=== PATIENT | male | born 1985 | race Caucasian/White ===

== ENCOUNTER 2023-04-13 09:27 | Emergency (ER) | payer SELFPAY ==
[2023-04-13 09:35] VITALS: BP 108/88; PULSE 73; RESP 14; TEMP 37; O2SAT 95
--- NOTE | 2023-04-13 09:37 | ED_ITS ---
HPI - Skin/Abscess/Foreign Bdy General: Chief complaint: Skin/Abscess/Foreign Body Stated complaint: possible poison dimitri Time Seen by Provider: 04/13/23 09:28 Source: patient Mode of arrival: ambulatory Limitations: no limitations History of Present Illness: Patient is a 37-year-old male who presents to ED today with a rash that he feels is consistent with poison dimitri. Patient states a few days ago he was helping remodel a house and was pulling weeds as well as taking out roots in order to lay exterior rock fa?sergio when he noticed he had pulled some poison dimitri. He states since then he noticed a rash to bilateral hands/wrists/forearms and has a few lesions to his anterior chest. He states they burn and itch. Has tried Benadryl and topical hydrocortisone cream without much relief. MD complaint: rash and lesion Onset (ago): day(s) Tetanus up to date: yes Location: chest, LUE, RUE, L hand and R hand Severity: mild Quality: burning and pruritic Relieving factors: none Exacerbating factors: none Context: other (plant exposure ) Associated symptoms: Deny chills, fever(s), nausea or vomiting Treatments prior to arrival: Benadryl and corticosteroid Review of Systems Const: Denies: fever(s), chills, body aches, fatigue or malaise Card: Denies: chest pain Resp: Denies: dyspnea GI: Denies: abdominal pain, nausea or vomiting Musc: Denies: neck pain, back pain, extremity pain or joint pain Skin/Breast: Reports: rash and pruritus Neuro: Denies: numbness in extremities, weakness in extremities or sensory changes Physical Exam Const: COMMON NORMALS: no acute distress, average body habitus, patient oriented x3, no limitations, healthy appearing, alert and well nourished Extremity: COMMON NORMALS: normal to inspection GENERAL: Yes normal exam except as noted Neuro: COMMON NORMALS: patient oriented x3, moves all extremities, no focal motor deficits and no sensory deficits noted SENSORIUM/ORIENTATION: Yes alert Skin: NARRATIVE SKIN EXAM: patient has multiple excoriated erythematous lesions consisting of mainly papules some of which are clustered to bilateral hands/wrists/forearms; some linear distribution noted; no webbing lesions; no crusting noted RASHES: rashes noted Course Vital Signs: Vital signs: Vital Signs Temperature 98.6 F 04/13/23 09:35 Pulse Rate 73 04/13/23 10:02 Respiratory Rate 14 04/13/23 09:35 Blood Pressure 107/88 04/13/23 10:02 Pulse Oximetry 98 04/13/23 10:02 Oxygen Delivery Me thod Room Air 04/13/23 09:35 MDM - Skin/Abscess/Foreign Bdy Medicial Decision Making Suspicion for scabies clinically however history suggests more of a plant dermatitis. Patient would like treatment for poison dimitir with steroids as he feels confident this is what this is. He was given IM hydrocortisone here and will place on topical triamcinolone cream at home. Discussed if symptoms do not improve and continue to spread/worsen then he needs re-evaluated. Patient agrees. 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
[2023-04-13] MEDS: hydrocortisone 100 mg/2 mL SDV 50 MG IM (09:54)
[2023-04-13 10:02] VITALS: BP 107/88; PULSE 73; O2SAT 98
== END 2023-04-13 09:59 | disposition home or self-care (01) ==
PROVIDERS: Emergency Provider Physician Assistant; PCP General Practice
DX: L23.7 Allergic contact dermatitis due to plants, except food (principal)
CPT/HCPCS: 96372; 99284; J1720

== ENCOUNTER 2023-12-06 11:01 | Emergency (ER) | payer BC, MEDICAID, SELFPAY ==
[2023-12-06 11:26] VITALS: BP 114/71; PULSE 55; RESP 18; TEMP 36.8; O2SAT 95; BMI 22.3
--- NOTE | 2023-12-06 11:33 | ED_ITS ---
HPI - Extremity Injury (Upper) General: Chief Complaint: Extremity Problem,Nontraumatic Stated Complaint: Right shoulder pain Time Seen by Provider: 12/06/23 11:02 Source: patient Mode of arrival: ambulatory Limitations: no limitations History of Present Illness: Patient is a 38-year-old male who presents to ED today for evaluation of a right shoulder injury. Patient states yesterday he was working on a garage door when the spring unloaded and caused the garage door to shoot upward. Patient states he was holding onto the door and thus his arm got pulled abruptly. Patient states he noticed a small amount of pain immediately but was not overly concerned. He states he woke up this morning and cannot use the shoulder secondary to pain. Denies numbness, tingling, loss of sensation. No color or temperature changes. MD complaint: injury to: right and shoulder Onset (ago): day(s) (yesterday) Other Extremity Injury: Right: shoulder Other injuries: none Place: home Severity: moderate Relieving factors: immobilization Exacerbating factors: movement of extremity Context: other (pulling injury) Associated symptoms: Reports no associated symptoms Review of Systems Musc: Reports: joint pain (R shoulder) and limited range of motion (R s houlder); Denies: extremity pain, extremity swelling, joint swelling, joint redness, joint warmth, joint stiffness, muscle cramps, muscle weakness, decrease in muscle mass or loss of height Neuro: Denies: numbness in extremities or sensory changes Physical Exam Const: COMMON NORMALS: no acute distress, average body habitus, patient oriented x3, no limitations, alert and well nourished Extremity: COMMON NORMALS: normal to inspection, capillary refill normal and no clubbing, cyanosis or edema GENERAL: Yes normal exam except as noted RIGHT UPPER EXTREMITY: Yes shoulder joint Right shoulder: Yes Right shoulder joint inspection exam (normal gross inspection), Yes Right shoulder joint ROM exam (fairly good IR/ER movements; pain with flexion/abduction) and Yes Right shoulder joint neurovascular exam (normal) Neuro: COMMON NORMALS: patient oriented x3, moves all extremities, no focal motor deficits and no sensory deficits noted SENSORIUM/ORIENTATION: Yes alert Course Vital Signs: Vital signs: Vital Signs Temperature 98.2 F 12/06/23 11:26 Pulse Rate 55 L 12/06/23 11:26 Respiratory Rate 18 12/06/23 11:26 Blood Pressure 114/71 12/06/23 11:26 Pulse Oximetry 95 12/06/23 11:26 Oxygen Delivery Me thod Room Air 12/06/23 11:26 MDM - Extremity Injury (Upper) Medical Decision Making XR negative. Recommend ice/heat. Will Rx prescriptions for NSAIDs and steroids. Recommend follow-up with primary care in 1 to 2 weeks. All radiology interpretation(s) finalized by discharge Discharge Plan Discharge Patient Disposition: Home Clinical Impression: Injury of right shoulder Qualifiers: Encounter type: initial encounter Qualified Code(s): S49.91XA - Unspecified injury of right shoulder and upper arm, initial encounter Condition: Stable Prescriptions: New prednisone 10 mg tablet 10 mg PO DAILY 7 Days Qty: 27 0RF Rx Instructions: 6 tabs on days 1-2, 5 tabs on days 3, 4 tabs on day 4, 3 tabs on day 5, 2 tabs on day 6, 1 tab on day 7 diclofenac sodium 50 mg tablet,delayed release (DR/EC) 50 mg PO Q12H PRN (Reason: pain) Qty: 20 0RF Discharge Orders: Discharge ED (Routine); Ordered 12/06/23 Ordered By: Bee Iniguez Referrals: Christina Fitzpatrick MD [Primary Care Provider] - Activity Restrictions/Additional Instructions: As we discussed you may ice the extremity over the next 48 hours and then switch and begin using heat. Please follow-up with your primary care provider in 1 to 2 weeks so they can reassess shoulder and determine any further treatment/evaluation if needed. 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
--- NOTE | 2023-12-06 11:37 | XR_ITS ---
WS: [id number] Exam: XR shoulder RT min 2V* [id number] Date/Time of Exam: 12/06/2023 11:40 AM Reason For Exam: trauma/injury The projections of the shoulder reveal no fractures, anomalies, soft tissue swelling, or calcificatio ns. There is normal bony alignment. No irregularity of the bony architecture is noted. IMPRESSION: Negative RIGHT shoulder.
[2023-12-06 12:13] VITALS: BP 110/68; PULSE 57; RESP 14; O2SAT 95
== END 2023-12-06 12:14 | disposition home or self-care (01) ==
PROVIDERS: Emergency Provider Physician Assistant; PCP Family Medicine
DX: S49.91XA Unspecified injury of right shoulder and upper arm, initial encounter (principal); X50.9XXA Other and unspecified overexertion or strenuous movements or postures, initial encounter
CPT/HCPCS: 73030; 99283

== ENCOUNTER → 2024-02-03 09:37 | Outpatient (BNVA) | payer BC, MEDICAID, SELFPAY | PROVIDERS: PCP Nurse Practitioner Family; Referring Provider Nurse Practitioner Family; Visit Provider Physician Assistant | DX: M75.41 Impingement syndrome of right shoulder | CPT/HCPCS: 73030 ==

== ENCOUNTER 2024-05-31 14:12 | Outpatient (CLI) | payer BC, MEDICAID, SELFPAY ==
--- NOTE | 2024-05-31 14:30 | MR_ITS ---
WS: [id number] MRI RIGHT SHOULDER HISTORY: Rotator cuff impingement COMPARISON: None available. TECHNIQUE: Multiplanar sequences of the shoulder joint are submitted. Minimal AC joint hypertrophy. Very minimal subacromial impingement due to an osteophyte along the und ersurface of the acromion. Very small amount of fluid in subdeltoid bursa. Biceps tendon normal posit ion in the bicipital groove. No os acromion. Humeral head is normally positioned at the glenoid. Increased T2 signal in the distal supraspinatus t endon. There is no fluid gap. This is most consistent with moderate tendinopathy. There is no muscle atrophy or edema. Subscapularis and the infraspinatus tendons are normal. There is redundant soft tis willie between the labrum and the subscapularis tendon. This appears to be an elongated wavy middle annalise ohumeral ligament. Suspect this may be a torn middle glenohumeral ligament. The adjacent labrum appea rs appropriate. There is increased fluid surrounding the lax middle glenohumeral ligament. MR/MR shoulder RT wo con* [id number] IMPRESSION: 1. Mild AC joint arthritis. 2. Mild subacromial impingement. 3. Moderate tendinopathy in the distal supraspinatus. No tear identified. 4. Redundant wavy middle glenohumeral ligament with increased fluid and hetero geneous signal. Likely torn middle glenohumeral ligament.
== END 2024-05-31 14:13 | disposition home or self-care (01) ==
LOC: RAD 14:13
PROVIDERS: PCP Nurse Practitioner Family; Visit Provider Physician Assistant
DX: M75.41 Impingement syndrome of right shoulder (principal); M19.011 Primary osteoarthritis, right shoulder
CPT/HCPCS: 73221